=== PATIENT | male | born 1965 | race Asian ===

== ENCOUNTER 2016-08-01 23:30 | Emergency (ER) | payer BC ==
[~2016-08-01] VITALS: Ht 170.2 cm; Wt 104.3 kg
[~2016-08-01 23:30] MED LIST: CIALIS5 MG PO; METF500T PO
[2016-08-01 23:46] VITALS: BP 155/89; TEMP 98
[2016-08-02 00:39] LABS: PLATELET COUNT 122 K/uL (142-355); POTASSIUM 3.8 mmol/L (3.6-5.2); SODIUM 137 mmol/L (136-145)
== END 2016-08-02 03:36 | disposition left against medical advice (07) ==
LOC: ED 23:30
PROVIDERS: Emergency Medicine
DX: R51 Headache (principal); I10 Essential (primary) hypertension
CPT/HCPCS: 36415; 80053; 84443; 85027; 96372; 99283; J2175

== ENCOUNTER 2016-10-28 10:19 | Outpatient (CLI) | payer BC ==
[2016-10-28 11:11] LABS: POTASSIUM 3.6 mmol/L (3.6-5.2); SODIUM 133 mmol/L (136-145)
== END 2016-10-28 19:27 | disposition home or self-care (01) ==
LOC: LABW 10:19
PROVIDERS: Student in an Organized Health Care Education/Training Program
DX: E11.9 Type 2 diabetes mellitus without complications (principal); E78.2 Mixed hyperlipidemia; E29.1 Testicular hypofunction
CPT/HCPCS: 36415; 80053; 80061; 83036; 84153; 84402; 84403

== ENCOUNTER 2018-02-17 17:56 | Inpatient (IN) | payer BC ==
[~2018-02-17] VITALS: Ht 170.2 cm; Wt 105.8 kg
[2018-02-17] VITALS: BP 121/74; TEMP 97.7
[2018-02-17 18:00] VITALS: BP 140/85
[2018-02-17 18:51] LABS: PLATELET COUNT 145 K/uL (142-355)
[2018-02-17 19:02] LABS: POTASSIUM 3.6 mmol/L (3.6-5.2)
[2018-02-17 19:09] LABS: PARTIAL THROMBOPLASTIN TIME 24.9 SECONDS (24.5-33.6)
[2018-02-17] MEDS ORDERED: LISITAB PO (20:45)
[2018-02-17] MEDS ORDERED: PHENTERMINE37.5 MG PO (20:46)
[2018-02-17] MEDS ORDERED: CIALIS5 MG PO (20:47)
[2018-02-18] VITALS: BP 121/74; TEMP 97.7
[2018-02-18 02:12] VITALS: BP 121/74; TEMP 97.7; Ht 170.2 cm; Wt 105.8 kg
--- NOTE | 2018-02-18 02:39 | NUR ---
LATE ENTRY FROM 02/17/18 AT 2247. PATIENT ARRIVED FROM ER IN WHEELCHAIR. ORIENTED TO ROOM AND CALL LIGHT. PATIENT RESTING COMFORTABLY IN BED.
[2018-02-18] MEDS ORDERED: ASPIRIN 81 LOW81 MG PO (02:51)
[2018-02-18 04:00] VITALS: BP 110/67; TEMP 98.5
[2018-02-18 08:00] VITALS: BP 113/74; TEMP 98.1
--- NOTE | 2018-02-18 08:56 | NUR ---
Patient is on a 2000 Calorie ADA diet plan and has a dx. of angioedema d/t lisinopril with slurred speech and IBW 160+/-10% and is 146% IBW, BMI 34.46 Class I Obesity and kcal needs - 2200 for IBW and 3200 for weight and is on 2000 Calorie to promote weight loss as is needed, protein needs 73 for IBW and 106 for weight, fluid needs 200 for IBW and 3200 for weight (30). Contiue with the 2000 Calorie ADA diet plan to promote weight loss as is needed. Continue POC and encourge patient to follow diet as ordered.
[2018-02-18] MEDS ORDERED: LOSA50TA PO (11:24)
[2018-02-18] MEDS ORDERED: MEDROL DOSEPAK4 MG PO (11:25)
[2018-02-18] MEDS ORDERED: PEPCID20 MG PO (11:26)
[2018-02-18 12:00] VITALS: BP 107/67; TEMP 98.3
--- NOTE | 2018-02-18 14:25 | NUR ---
PT DISCHARGED HOME, IV D/C'D TIP INTACT, NO REDNESS/SWELLING/EDEMA NOTED, CLEAN DRY DRESSING APPLIED AND SECURED WITH PAPER TAPE, NO ACUTE DISTRESS NOTED, NO C/O VOICED AT THIS TIME, PT AMBULATED TO PRIVATE CAR ACCOMPANIED BY FAMILY.
== END 2018-02-18 15:19 | disposition home or self-care (01) | DRG 916 ==
LOC: ED 17:56 → MED/SURG 21:00
PROVIDERS: Family Medicine; ADMIT Internal Medicine
DX: T78.3XXA Angioneurotic edema, initial encounter (principal); T46.4X5A Adverse effect of angiotensin-converting-enzyme inhibitors, initial encounter; Y92.89 Other specified places as the place of occurrence of the external cause; R47.81 Slurred speech; K21.9 Gastro-esophageal reflux disease without esophagitis; Z85.46 Personal history of malignant neoplasm of prostate; I10 Essential (primary) hypertension; E11.9 Type 2 diabetes mellitus without complications
CPT/HCPCS: 36415; 80053; 82948; 85027; 85610; 85730; 93005; 93306; 96372; 96374; 96375; 99284; J1200; J1815; J2780; J2930

== ENCOUNTER 2018-11-22 07:04 | Emergency (ER) | payer BC ==
[~2018-11-22] VITALS: Ht 170.2 cm; Wt 105.7 kg
[~2018-11-22 07:04] MED LIST changes: +ASPIRIN 81 LOW81 MG PO; +LISITAB PO; +LOSA50TA PO; +MEDROL DOSEPAK4 MG PO; +PEPCID20 MG PO; +PHENTERMINE37.5 MG PO
[2018-11-22 07:46] LABS: PLATELET COUNT 85 K/uL (142-355)
[2018-11-22 07:55] LABS: POTASSIUM 3.4 mmol/L (3.6-5.2)
[2018-11-22 09:08] VITALS: BP 155/87; TEMP 99.7
== END 2018-11-22 09:09 | disposition home or self-care (01) ==
LOC: ED 07:04
PROVIDERS: Emergency Medicine
DX: J06.9 Acute upper respiratory infection, unspecified (principal); E11.65 Type 2 diabetes mellitus with hyperglycemia; Z79.84 Long term (current) use of oral hypoglycemic drugs; F17.210 Nicotine dependence, cigarettes, uncomplicated
CPT/HCPCS: 80053; 81002; 82962; 85027; 87502; 87651; 96360; 96372; 99284; J1815

== ENCOUNTER 2019-01-03 08:36 | Outpatient (CLI) | payer BC, OTHER ==
[2019-01-03 09:05] LABS: PLATELET COUNT 103 K/uL (142-355)
[2019-01-03 09:35] LABS: POTASSIUM 3.8 mmol/L (3.6-5.2)
== END 2019-01-03 22:31 | disposition home or self-care (01) ==
LOC: LABW 08:36
PROVIDERS: Family Medicine
DX: E13.65 Other specified diabetes mellitus with hyperglycemia (principal); K21.9 Gastro-esophageal reflux disease without esophagitis; C61 Malignant neoplasm of prostate; G47.33 Obstructive sleep apnea (adult) (pediatric); G25.81 Restless legs syndrome; E66.9 Obesity, unspecified; F17.200 Nicotine dependence, unspecified, uncomplicated; E55.9 Vitamin D deficiency, unspecified
CPT/HCPCS: 36415; 80053; 80061; 81000; 82306; 83036; 83735; 84439; 84443; 85027

== ENCOUNTER 2019-01-19 10:33 | Outpatient (CLI) | payer BC, OTHER | END 2019-01-19 19:32 | disposition home or self-care (01) | LOC: RAD 10:33 | DX: E11.9 Type 2 diabetes mellitus without complications (principal); R74.8 Abnormal levels of other serum enzymes; K21.9 Gastro-esophageal reflux disease without esophagitis; M54.9 Dorsalgia, unspecified ==

== ENCOUNTER 2019-11-17 09:26 | Outpatient (CLI) | payer BC | END 2019-11-17 20:29 | disposition home or self-care (01) | LOC: RAD 09:26 | DX: M25.512 Pain in left shoulder (principal); M25.562 Pain in left knee; D69.6 Thrombocytopenia, unspecified ==

== ENCOUNTER 2019-11-18 20:35 | Emergency (ER) | payer OTHER, BC ==
[~2019-11-18] VITALS: Ht 170.2 cm; Wt 96.2 kg
[2019-11-18 22:03] LABS: PLATELET COUNT 110 K/uL (142-355); POTASSIUM 3.8 mmol/L (3.6-5.2)
[2019-11-18 22:16] VITALS: BP 136/98; TEMP 98
[2019-11-18 22:16] LABS: PARTIAL THROMBOPLASTIN TIME 23.8 SECONDS (24.5-33.6)
== END 2019-11-18 22:16 | disposition home or self-care (01) ==
LOC: ED 20:35
PROVIDERS: Hospitalist
PROC: 0HQFXZZ Repair Right Hand Skin, External Approach (ICD-10-PCS; principal; 2019-11-18)
DX: S61.214A Laceration without foreign body of right ring finger without damage to nail, initial encounter (principal); E11.65 Type 2 diabetes mellitus with hyperglycemia; Z79.84 Long term (current) use of oral hypoglycemic drugs; W45.8XXA Other foreign body or object entering through skin, initial encounter; Y92.89 Other specified places as the place of occurrence of the external cause
CPT/HCPCS: 36415; 80048; 85027; 85610; 85730; 96365; 96375; 99284; J0690; J2270

== ENCOUNTER 2020-04-04 13:41 | Emergency (ER) | payer BC | END 2020-04-04 15:17 | disposition home or self-care (01) | LOC: ED 13:41 | DX: R05 Cough (principal); R50.9 Fever, unspecified | CPT/HCPCS: 99281 ==

== ENCOUNTER 2020-04-05 16:01 | Outpatient (CLI) | payer BC, OTHER ==
[~2020-04-05] VITALS: Ht 170.2 cm; Wt 108.9 kg
== END 2020-04-05 20:30 | disposition home or self-care (01) ==
LOC: INF 16:01
PROVIDERS: ATTEND Internal Medicine Endocrinology, Diabetes & Metabolism
DX: U07.1 COVID-19 (principal)
CPT/HCPCS: 96365; Q0239

== ENCOUNTER 2020-07-05 08:14 | Outpatient (CLI) | payer BC, OTHER | END 2020-07-05 22:37 | disposition home or self-care (01) | LOC: INF 08:14 | PROVIDERS: ATTEND Internal Medicine | DX: Z23 Encounter for immunization (principal) | CPT/HCPCS: 96372 ==

== ENCOUNTER 2020-07-17 12:55 | Outpatient (CLI) | payer BC | END 2020-07-17 19:15 | disposition home or self-care (01) | LOC: RESP 12:55 → RAD 12:55 → RESP 16:00 | PROVIDERS: ATTEND Internal Medicine Cardiovascular Disease | DX: I10 Essential (primary) hypertension (principal); R94.31 Abnormal electrocardiogram [ECG] [EKG] ==

== ENCOUNTER 2020-07-27 08:21 | Outpatient (CLI) | payer BC, OTHER | END 2020-07-27 19:33 | disposition home or self-care (01) | LOC: INF 08:21 | PROVIDERS: ATTEND Internal Medicine | DX: Z23 Encounter for immunization (principal) | CPT/HCPCS: 96372 ==

== ENCOUNTER 2021-06-23 08:56 | Outpatient (CLI) | payer BC ==
[2021-06-23 09:45] LABS: PLATELET COUNT 113 K/uL (142-355)
[2021-06-23 09:58] LABS: POTASSIUM 3.6 mmol/L (3.6-5.2)
== END 2021-06-23 19:34 | disposition home or self-care (01) ==
LOC: LABW 08:56
PROVIDERS: ATTEND Family Medicine
DX: I10 Essential (primary) hypertension (principal); E13.65 Other specified diabetes mellitus with hyperglycemia; E66.9 Obesity, unspecified; E78.5 Hyperlipidemia, unspecified; E55.9 Vitamin D deficiency, unspecified; K21.9 Gastro-esophageal reflux disease without esophagitis; C61 Malignant neoplasm of prostate
CPT/HCPCS: 36415; 80053; 80061; 81000; 82306; 83036; 83735; 84154; 84439; 84443; 85027

== ENCOUNTER 2021-07-25 13:58 | Emergency (ER) | payer BC ==
[~2021-07-25] VITALS: Ht 170.2 cm; Wt 108.9 kg
[2021-07-25 14:02] VITALS: BP 147/74; TEMP 97
== END 2021-07-25 14:50 | disposition home or self-care (01) ==
LOC: ED 13:58
DX: R68.84 Jaw pain (principal); S00.83XA Contusion of other part of head, initial encounter; S00.81XA Abrasion of other part of head, initial encounter; W22.8XXA Striking against or struck by other objects, initial encounter; Y92.89 Other specified places as the place of occurrence of the external cause
CPT/HCPCS: 96372; 99283; J0690; J1885

== ENCOUNTER 2022-01-02 09:58 | Outpatient (CLI) | payer BC | END 2022-01-02 23:23 | disposition home or self-care (01) | LOC: RAD 09:58 | PROVIDERS: ATTEND Family Medicine | DX: M25.512 Pain in left shoulder (principal) ==

== ENCOUNTER 2022-09-20 21:54 | Emergency (ER) | payer BC ==
[~2022-09-20] VITALS: Ht 170.2 cm; Wt 99.8 kg
[2022-09-20 21:54] VITALS: BP 157/101; TEMP 97.2
== END 2022-09-20 23:51 | disposition home or self-care (01) ==
LOC: ED 21:54
DX: M25.512 Pain in left shoulder (principal)
CPT/HCPCS: 96372; 99283; J1885; J2360